=== PATIENT | female | born 1940 | race Caucasian/White ===

== ENCOUNTER → 2017-06-12 | Outpatient (CLI) | payer MEDICARE, OTHER ==
[~2017-06-12] MED LIST: ALEV220C2 PO; ASPI1TAB PO; BUPR300T34 PO; CALCTAB41 PO; COUM2.5T17 PO; FISH100049 PO; PRIL20TA2 PO; RANI1TAB6 PO; VENL150C43 PO; VITA-112 PO
--- NOTE | 2017-06-12 14:23 | REPMRS ---
Patient History The patient states she had a clinical breast exam in 02/2017. Patient is postmenopausal. Family history of breast cancer in mother at age 50 or over and prostate cancer in maternal uncle. Digital Woman Screen Mammo: June 12, 2017 - Exam #: [id number] Bilateral CC and MLO view(s) were taken. Technologist: Cata Betancourt, Technologist Prior study comparison: June 11, 2016, digital woman screen mammo performed at [facility] to [facility]. June 06, 2015, digital woman screen mammo performed at [facility]. FINDINGS: There are scattered fibroglandular densities. There has been no change in the appearance of the mammogram from the prior studies. There is a mild amount of residual fibroglandular tissue which is fairly symmetric. There is no interval development of dominant mass, architectural distortion, or clustered microcalcification suggestive of malignancy. ASSESSMENT: BI-RADS/ACR category 1 mammogram. Negative. Recommendation Routine screening mammogram in 1 year (for women over age 40). This mammogram was interpreted with the aid of an FDA-approved computer-aided dectection system. Electronically Signed By: Alonzo Escobar MD 06/12/17 [id number]
== END ==
LOC: M WHC 13:09
PROVIDERS: ATTEND Nurse Practitioner Adult Health
DX: Z12.31 Encounter for screening mammogram for malignant neoplasm of breast (principal); Z78.0 Asymptomatic menopausal state

== ENCOUNTER → 2018-05-15 | Outpatient (REF) | payer MEDICARE, OTHER | LOC: M LAB REF 13:05 | DX: R35.0 Frequency of micturition (principal) | CPT/HCPCS: 87086 ==

== ENCOUNTER 2018-06-16 06:54 | Day surgery (SDC) | payer MEDICARE, OTHER ==
[2018-06-16] MEDS ORDERED: LIDOCAINE 2% INJ 100 MG/5 ML SDV (FOR ANES.) As Ordered (07:09)
[2018-06-16] MEDS ORDERED: PROPOFOL 200 MG/20 ML VIAL As Ordered (07:09)
[2018-06-16] MEDS ORDERED: NS 1,000 ML IV (07:30)
== END 2018-06-16 09:30 | disposition home or self-care (01) ==
LOC: M OPP 06:54
DX: R19.5 Other fecal abnormalities (principal); K64.8 Other hemorrhoids; E78.5 Hyperlipidemia, unspecified; M19.90 Unspecified osteoarthritis, unspecified site; F32.9 Major depressive disorder, single episode, unspecified; K21.9 Gastro-esophageal reflux disease without esophagitis; H91.90 Unspecified hearing loss, unspecified ear; Z96.653 Presence of artificial knee joint, bilateral; Z79.82 Long term (current) use of aspirin; Z79.899 Other long term (current) drug therapy; Z80.3 Family history of malignant neoplasm of breast; Z80.7 Family history of other malignant neoplasms of lymphoid, hematopoietic and related tissues
CPT/HCPCS: 45378

== ENCOUNTER → 2018-06-17 | Outpatient (CLI) | payer MEDICARE, OTHER | LOC: M WHC 10:31 | DX: Z12.31 Encounter for screening mammogram for malignant neoplasm of breast (principal) | CPT/HCPCS: 77067 ==

== ENCOUNTER → 2019-03-05 | Outpatient (CLI) | payer MEDICARE, OTHER ==
[~2019-03-05] MED LIST changes: +ABIL1TAB13 PO; +ALEV220T26 PO; -ASPI1TAB PO; +ASPI81CH49 PO; +ASPI81TA26 PO; +ROSU5TAB4 PO
--- NOTE | 2019-03-05 11:54 | REP ---
Chest two views HISTORY: Shortness of breath Comparison: 07/23/2016 The lungs are hyperinflated. The lungs are clear. The heart is normal in size. The pulmonary vasculature is normal in appearance. Degenerative change is present in the thoracic spine. IMPRESSION: No acute disease. Electronically Signed by Pernell Reynolds MD 03/05/2019 11:46 A
== END ==
LOC: M RAD 11:22
PROVIDERS: ATTEND Nurse Practitioner Adult Health
DX: R06.02 Shortness of breath (principal)

== ENCOUNTER → 2019-03-11 | Outpatient (CLI) | payer MEDICARE, OTHER ==
--- NOTE | 2019-03-15 15:19 | DEXA ---
AP SPINE L1 - L4 1.221 0.2 2.1 LT FEMUR TOTAL 0.979 -0.2 1.8 LT NECK 0.927 -0.8 1.4 RT FEMUR TOTAL 0.906 -0.8 1.2 RT NECK 0.849 -1.4 0.8 TOTAL BODY TOTAL OTHER COMMENTS: Normal bone densitometry of the spine. Normal bone densitometry of the left hip. There is low bone density of the right hip. The increased density of the spine does represent a significant change. The decreased density of the left hip does not represent a significant change. The decreased density of the right hip does represent a significant change. The density of the spine is increased 6.0% since the initial exam on 05/18/2002. The spine density has increased 4.5% since the most recent exam on 12/31/2012. The density of the left hip has decreased 2.9% since the initial exam on 05/18/2002. The density of the left hip has decreased 0.1% since the most recent exam on 12/31/2012. The density of the right hip has decreased 7.6% since the initial exam on 05/18/2002. The density of the right hip has decreased 5.9% since the most recent exam on 12/31/2012. FOLLOW-UP: Recommendation for the next bone density exam: 2 years. DAVIAN
== END ==
LOC: M WHC 14:00
PROVIDERS: ATTEND Nurse Practitioner Adult Health
DX: M85.89 Other specified disorders of bone density and structure, multiple sites (principal)

== ENCOUNTER → 2020-06-07 | Outpatient (CLI) | payer SELFPAY ==
[~2020-06-07] MED LIST changes: -BUPR300T34 PO; +BUPR300T92 PO; +RANI-397 PO; -RANI1TAB6 PO; -ROSU5TAB4 PO; +ROSU5TAB5 PO
== END ==
LOC: M LABSMTC 10:30
PROVIDERS: ATTEND Pediatrics
DX: Z11.59 Encounter for screening for other viral diseases (principal); Z20.828 Contact with and (suspected) exposure to other viral communicable diseases

== ENCOUNTER 2020-08-14 13:27 | Emergency (ER) | payer MEDICARE, OTHER ==
[~2020-08-14] VITALS: Ht 160 cm; Wt 65.6 kg
[2020-08-14 13:27] VITALS: BP 146/79
--- NOTE | 2020-08-14 14:22 | REPVR ---
PROCEDURE INFORMATION: Exam: XR Left Shoulder Exam date and time: 08/14/2020 1:59 PM Age: 80 years old Clinical indication: Pain; Shoulder; Left; Additional info: Trauma TECHNIQUE: Imaging protocol: XR Left shoulder. Views: 2 or more views. COMPARISON: 1. SR - Chest, 2 view PA, Lat 03/05/2019 11:31:15 AM 2. SR - Chest, 2 view PA, Lat 07/23/2016 10:28:29 AM FINDINGS: Limitations: Clothing artifacts overlie and partially obscure the anatomy. There is incomplete external rotation of the humerus on the external rotation view, limiting evaluation. Bones/joints: No acute fracture is identified. No dislocation. The bones appear diffusely demineralized. Degenerative spine disease. Soft tissues: Unremarkable as visualized. IMPRESSION: 1. No acute fracture is identified. 2. Limited evaluation due to positioning and osseous demineralization. Electronically signed by: Miguel Johnson On 08/14/2020 14:21:49 PM
== END 2020-08-14 15:08 | disposition home or self-care (01) ==
LOC: M ED 13:27
DX: S40.012A Contusion of left shoulder, initial encounter (principal); W01.0XXA Fall on same level from slipping, tripping and stumbling without subsequent striking against object, initial encounter; Y92.410 Unspecified street and highway as the place of occurrence of the external cause; Y93.01 Activity, walking, marching and hiking; I10 Essential (primary) hypertension; K21.9 Gastro-esophageal reflux disease without esophagitis; Z79.82 Long term (current) use of aspirin; Z79.899 Other long term (current) drug therapy

== ENCOUNTER → 2020-10-31 | Outpatient (REF) | payer MEDICARE, OTHER | LOC: M LAB REF 11:35 | PROVIDERS: ATTEND Nurse Practitioner Adult Health | DX: N39.46 Mixed incontinence (principal) ==

== ENCOUNTER → 2022-03-07 | Outpatient (CLI) | payer MEDICARE, OTHER | LOC: M WHC 11:11 | PROVIDERS: ATTEND Nurse Practitioner Adult Health | DX: Z13.820 Encounter for screening for osteoporosis (principal); M85.9 Disorder of bone density and structure, unspecified; M81.0 Age-related osteoporosis without current pathological fracture ==

== ENCOUNTER → 2022-05-30 | Outpatient (REF) | payer MEDICARE, OTHER | LOC: M LAB REF 16:19 | PROVIDERS: ATTEND Nurse Practitioner Adult Health | DX: N39.46 Mixed incontinence (principal); N18.32 Chronic kidney disease, stage 3b ==

== ENCOUNTER → 2023-05-01 | Outpatient (CLI) | payer MEDICARE, OTHER | LOC: M WUC 15:56 | PROVIDERS: ATTEND Nurse Practitioner Adult Health | DX: M54.50 Low back pain, unspecified (principal) ==

== ENCOUNTER → 2023-05-13 | Outpatient (REF) | payer MEDICARE, OTHER | LOC: M LAB REF 16:36 | PROVIDERS: ATTEND Nurse Practitioner Adult Health | DX: Z79.899 Other long term (current) drug therapy (principal) ==

== ENCOUNTER → 2023-06-08 | Outpatient (REF) | payer MEDICARE, OTHER | LOC: M LAB REF 17:27 | PROVIDERS: ATTEND Physician Assistant Medical | DX: B34.9 Viral infection, unspecified (principal) ==

== ENCOUNTER 2023-10-13 17:51 | Emergency (ER) | payer MEDICARE, OTHER ==
[~2023-10-13] VITALS: Ht 154.9 cm; Wt 66.7 kg
[2023-10-13 18:45] LABS: BASO % 0.6 % (0.0-1.0); EOS # 0.1 10^3/uL (0.0-0.5); HEMOGLOBIN 13.1 g/dl (12.0-15.5); LYMPH # 1.5 10^3/uL (1.5-5.0); LYMPH % 32.3 % (24.0-44.0); MEAN CORPUSCULAR HEMOGLOBIN 32.8 pg (27.0-33.0); MEAN CORPUSCULAR HGB CONC 32.8 g/dl (32.0-36.5); MEAN CORPUSCULAR VOLUME 100.3 fl (80.0-96.0); MONO # 0.5 10^3/uL (0.0-0.8); NEUTROPHILS # 2.5 10^3/uL (1.5-8.5); NEUTROPHILS % 53.7 % (36.0-66.0); PLATELET COUNT, AUTOMATED 264 10^3/uL (150-450); RED BLOOD COUNT 3.99 10^6/uL (4.00-5.40); WHITE BLOOD COUNT 4.7 10^3/uL (4.0-10.0)
[2023-10-13 19:00] LABS: INR 1.08; PROTHROMBIN TIME 13.7 SECONDS (12.5-14.5)
[2023-10-13 19:10] LABS: ALBUMIN 3.4 G/DL (3.2-5.2); ALKALINE PHOSPHATASE 60 U/L (46-116); ALT/SGPT 21 U/L (7.0-40); AST/SGOT 17 U/L (<34); BILIRUBIN,DIRECT 0.1 MG/DL (<0.4); BILIRUBIN,TOTAL 0.4 MG/DL (0.3-1.2); BLOOD UREA NITROGEN 30 MG/DL (9-23); CALCIUM LEVEL 8.9 MG/DL (8.3-10.6); CARBON DIOXIDE LEVEL 27 MMOL/L (20-31); CHLORIDE LEVEL 105 MMOL/L (98-107); CK-MB VALUE MASS < 1.0 NG/ML (<3.6); CPK CREATINE PHOSPHOKINASE 81 U/L (34-145); CREATININE FOR GFR 0.94 MG/DL (0.55-1.30); GLOMERULAR FILTRATION RATE > 60.0 (>32); GLUCOSE, FASTING 126 MG/DL (74-106); MB/CK RELATIVE INDEX 1.23 (< OR =4); POTASSIUM SERUM 4.4 MMOL/L (3.5-5.1); SODIUM LEVEL 139 MMOL/L (136-145)
[2023-10-13 19:12] LABS: THYROID STIMULATING HORMONE 2.189 uIU/ML (0.55-4.78)
[2023-10-13 21:45] VITALS: BP 175/67
[2023-10-13 21:51] VITALS: TEMP 97.6; O2SAT 97
== END 2023-10-13 22:02 | disposition home or self-care (01) ==
LOC: M ED 17:51
DX: R07.9 Chest pain, unspecified (principal); I10 Essential (primary) hypertension; K21.9 Gastro-esophageal reflux disease without esophagitis; I44.0 Atrioventricular block, first degree; F32.A Depression, unspecified; Z79.82 Long term (current) use of aspirin; Z79.899 Other long term (current) drug therapy

== ENCOUNTER → 2024-07-16 | Outpatient (CLI) | payer MEDICARE, OTHER ==
[~2024-07-16] MED LIST changes: +BUPR-597 PO; -BUPR300T92 PO; +ROSU5TAB40 PO; -ROSU5TAB5 PO
== END ==
LOC: M WUC 09:35
PROVIDERS: ATTEND Physician Assistant
DX: R07.81 Pleurodynia (principal)

== ENCOUNTER 2024-08-01 13:12 | Emergency (ER) | payer MEDICARE, OTHER ==
[~2024-08-01] VITALS: Ht 154.9 cm; Wt 66.2 kg
[2024-08-01 13:16] VITALS: BP 179/90; TEMP 96.5; O2SAT 96
[2024-08-01] MEDS ORDERED: ROSU5TAB40 (13:43)
[2024-08-01] MEDS ORDERED: SYMB16INH (13:46)
[2024-08-01] MEDS ORDERED: FLON1SPR NARES (13:46)
[2024-08-01 14:57] LABS: RSV AMPLIFICATION NEGATIVE (NEGATIVE)
== END 2024-08-01 16:55 | disposition home or self-care (01) ==
LOC: M ED 13:12
DX: J06.9 Acute upper respiratory infection, unspecified (principal); J00 Acute nasopharyngitis [common cold]; B34.9 Viral infection, unspecified; J45.909 Unspecified asthma, uncomplicated; Z79.82 Long term (current) use of aspirin; Z79.899 Other long term (current) drug therapy

== ENCOUNTER → 2024-08-19 | Outpatient (CLI) | payer MEDICARE, OTHER ==
[~2024-08-19] MED LIST changes: +FLON1SPR NARES; +ROSU5TAB40; +SYMB16INH
== END ==
LOC: M WHC 13:19
PROVIDERS: ATTEND Physician Assistant Medical
DX: Z13.820 Encounter for screening for osteoporosis (principal); M85.851 Other specified disorders of bone density and structure, right thigh

== ENCOUNTER → 2024-11-15 | Outpatient (CLI) | payer MEDICARE, OTHER ==
[~2024-11-15] MED LIST changes: -ROSU5TAB40; -ROSU5TAB40 PO; +ROSU5TAB49; +ROSU5TAB49 PO
== END ==
LOC: M WHC 10:57
PROVIDERS: ATTEND Surgery
DX: Z12.31 Encounter for screening mammogram for malignant neoplasm of breast (principal); C50.811 Malignant neoplasm of overlapping sites of right female breast; Z97.8 Presence of other specified devices
CPT/HCPCS: 77066; G0279

== ENCOUNTER 2024-12-02 10:51 | Emergency (ER) | payer MEDICARE, OTHER ==
[~2024-12-02] VITALS: Ht 154.9 cm; Wt 65.3 kg
[2024-12-02] MEDS ORDERED: NITROGLYCERIN 0.4MG SUBL TABLET SL PRN (11:45)
[2024-12-02 12:02] LABS: BASO % 0.7 % (0.0-1.0); EOS # 0.1 10^3/uL (0.0-0.5); EOS % 2.5 % (0.0-3.0); HEMATOCRIT 43.2 % (36.0-47.0); HEMOGLOBIN 14.2 g/dl (12.0-15.5); LYMPH # 1.1 10^3/uL (1.5-5.0); LYMPH % 25.1 % (24.0-44.0); MEAN CORPUSCULAR HEMOGLOBIN 32.6 pg (27.0-33.0); MEAN CORPUSCULAR HGB CONC 32.9 g/dl (32.0-36.5); MEAN CORPUSCULAR VOLUME 99.1 fl (80.0-96.0); MONO # 0.4 10^3/uL (0.0-0.8); MONO % 8.9 % (2.0-8.0); NEUTROPHILS # 2.7 10^3/uL (1.5-8.5); NEUTROPHILS % 62.3 % (36.0-66.0); PLATELET COUNT, AUTOMATED 311 10^3/uL (150-450); RED BLOOD COUNT 4.36 10^6/uL (4.00-5.40); WHITE BLOOD COUNT 4.4 10^3/uL (4.0-10.0)
[2024-12-02 12:14] LABS: INR 1.04; PARTIAL THROMBOPLASTIN TIME 25.9 SECONDS (24.8-34.2); PROTHROMBIN TIME 13.9 SECONDS (12.5-14.5)
[2024-12-02 12:22] LABS: CK-MB VALUE MASS 1.7 NG/ML (<3.6)
[2024-12-02] MEDS: ASPIRIN 81MG CHEW TABLET PO ONE (12:22)
[2024-12-02 12:24] LABS: ALBUMIN 3.4 G/DL (3.2-5.2); BILIRUBIN,DIRECT 0.1 MG/DL (<0.4); BILIRUBIN,TOTAL 0.5 MG/DL (0.3-1.2); CALCIUM LEVEL 9.1 MG/DL (8.3-10.6); CREATININE FOR GFR 0.99 MG/DL (0.55-1.30); GLOMERULAR FILTRATION RATE 56.6 (>32); POTASSIUM SERUM 3.8 MMOL/L (3.5-5.1)
[2024-12-02 12:26] LABS: THYROID STIMULATING HORMONE 1.677 uIU/ML (0.55-4.78)
[2024-12-02 12:27] LABS: FREE T4 1.13 NG/DL (0.89-1.76)
[2024-12-02 12:29] LABS: MB/CK RELATIVE INDEX 1.93 (< OR =4)
[2024-12-02] MEDS ORDERED: ISOVUE-370 76% 100ML VIAL As Ordered ONE (12:42)
[2024-12-02 13:12] LABS: CK-MB VALUE MASS < 1.0 NG/ML (<3.6)
[2024-12-02 13:13] LABS: CPK CREATINE PHOSPHOKINASE 82 U/L (34-145); MB/CK RELATIVE INDEX 1.21 (< OR =4)
[2024-12-02 13:30] VITALS: TEMP 97.6
[2024-12-02] MEDS ORDERED: DOXY100C82 PO (15:18)
[2024-12-02 16:15] VITALS: O2SAT 99
[2024-12-02 16:30] VITALS: BP 140/65; O2SAT 98
[2024-12-02] MEDS ORDERED: SPIR-10 PO (16:53)
[2024-12-02] MEDS ORDERED: FURO40TA2 PO (16:53)
[2024-12-02] MEDS ORDERED: CLOP75TA2 PO (16:53)
== END 2024-12-02 16:55 | disposition home or self-care (01) ==
LOC: M ED 10:51
DX: J18.9 Pneumonia, unspecified organism (principal); R07.9 Chest pain, unspecified; I44.0 Atrioventricular block, first degree; J45.909 Unspecified asthma, uncomplicated; C50.919 Malignant neoplasm of unspecified site of unspecified female breast; Z79.82 Long term (current) use of aspirin; Z79.899 Other long term (current) drug therapy
CPT/HCPCS: 36415; 71045; 71275; 80048; 80076; 82550; 82553; 83690; 83880; 84439; 84443; 84484; 85025; 85610; 85730; 87486; 87581; 87633; 87798; 93005; 93041; 94760; 99285; Q9967

== ENCOUNTER → 2025-06-23 | Outpatient (CLI) | payer MEDICARE, OTHER ==
[~2025-06-23] MED LIST changes: +ACET-683 PO; -BUPR-597 PO; +BUPR-766; +BUPR-766 PO; +CALCTAB89 PO; +CETI-24; +CLOP75TA2 PO; +DOXY-442 PO; +FLUTISP; +FURO40TA2 PO; +LETR2.5T2 PO; +LORA-1041 PO; +OMEG10002 PO; +REXU1TAB2; +SPIR-10 PO; +VITA100093 PO
== END ==
LOC: M WUC 12:09
PROVIDERS: ATTEND Nurse Practitioner Family
DX: M25.511 Pain in right shoulder (principal); M19.011 Primary osteoarthritis, right shoulder

== ENCOUNTER → 2025-06-25 | Outpatient (CLI) | payer MEDICARE, OTHER | LOC: M RAD 16:09 | DX: M25.562 Pain in left knee (principal); Z96.652 Presence of left artificial knee joint ==

== ENCOUNTER → 2025-07-05 | Outpatient (REF) | payer MEDICARE, OTHER ==
[2025-07-05 16:18] LABS: TOTAL 25(OH) VITAMIN D 46.2 NG/ML (20.0-100.0)
[2025-07-05 16:38] LABS: CA15-3 ANTIGEN 15.4 U/ML (<32.4)
== END ==
LOC: M LAB REF 15:18
PROVIDERS: ATTEND Physician Assistant Medical
DX: C50.911 Malignant neoplasm of unspecified site of right female breast (principal)